=== PATIENT | male | born 1975 | race Caucasian/White ===

== ENCOUNTER 2021-11-29 13:43 | Outpatient (CLI) | payer BC, SELFPAY ==
--- NOTE | 2021-11-29 14:02 | XR_ITS ---
WS: [id number] Chest 2 views, 11/29/2021 Clinical Data: dyspnea Comparison: None. Findings: No nodules, masses or effusions are seen. The heart is enlarged. The pulmonary vascularity is not increased. No pneumonia or pneumothorax is seen. XR/XR chest 2V* [id number] Impression: Cardiomegaly.
== END 2021-11-29 13:44 | disposition home or self-care (01) ==
LOC: RAD 13:47
PROVIDERS: PCP Clinical Nurse Specialist Adult Health; Visit Provider Clinical Nurse Specialist Adult Health
DX: R06.00 Dyspnea, unspecified (principal); I51.7 Cardiomegaly
CPT/HCPCS: 71046

== ENCOUNTER → 2021-12-12 09:29 | Outpatient (BNVA) | payer BC, SELFPAY | PROVIDERS: PCP Clinical Nurse Specialist Adult Health; Visit Provider Clinical Nurse Specialist Adult Health | DX: E78.5 Hyperlipidemia, unspecified (principal); I10 Essential (primary) hypertension | CPT/HCPCS: 80053 ==

== ENCOUNTER 2022-02-26 14:40 | Outpatient (CLI) | payer BC, MEDICAID, SELFPAY ==
--- NOTE | 2022-02-26 15:15 | USCV_ITS ---
Blake Judd Age: 46 Gender: M : 1975 Exam Date: 02/26/2022 15:28 Ordering Phys: Matt Cosby DO Technologist: Exam Location: [facility] [place] Indication: sob BP: 148 / 84 HR: 100 Rhythm: Sinus Technical Quality: Adequate MEASUREMENTS (Male / Female) Normal Values 2D ECHO LV Diastolic Diameter PLAX 6.6 cm 4.2 - 5.9 / 3.9 - 5.3 cm LV Systolic Diameter PLAX 3.3 cm IVS Diastolic Thickness 1.1 cm 0.6 - 1.0 / 0.6 - 0.9 cm IVS Systolic Thickness 1.1 cm LVPW Diastolic Thickness 0.8 cm 0.6 - 1.0 / 0.6 - 0.9 cm LVPW Systolic Thickness 4.6 cm LVOT Diameter 2.4 cm LV Ejection Fraction 2D Teich 62.3 % LV Ejection Fraction MOD 2C 58.9 % LV Ejection Fraction 2C AL 58.4 % LA Diameter 4.7 cm Aorta at Sinotubular Diameter 2.7 cm M-MODE Aortic Annulus Diameter 3.1 cm LA Ao Ratio MM 1.5 MV E Point Septal Separation 1.6 cm DOPPLER AV Peak Velocity 172.0 cm/s LVOT Peak Velocity 96.0 cm/s AV Area Cont Eq vti 2.2 cm squared AV Area Cont Eq pk 2.4 cm squared MV Area PHT 5.0 cm squared Mitral E to A Ratio 2.6 MV E' Velocity 68.2 cm/s Mitral E to MV E' Ratio 12.9 Mitral E to LV E' Lateral Ratio 9.0 Mitral E to LV E' Septal Ratio 23.6 TR Peak Velocity 388.0 cm/s TR Peak Gradient 60.2 mmHg TV Peak E Velocity 88.0 cm/s Right Atrial Pressure 3.0 mmHg Pulmonary Artery Systolic Pressu 63.2 mmHg PV Peak Velocity 99.0 cm/s FINDINGS Left Ventricle Normal left ventricular size, systolic function and wall thickness, with no regional wall motion abnormalities. Normal left ventricular wall thickness. Grade III/IV diastolic dysfunction (restrictive filling pattern), severely elevated filling pressures. Right Ventricle The right ventricle is normal in size and function. Right Atrium The right atrium is normal in size. Left Atrium Moderately increased left atrial size. Mitral Valve Structurally normal mitral valve without significant stenosis or prolapse. Mild-moderate mitral valve regurgitation. Aortic Valve Structurally normal aortic valve without significant sclerosis or stenosis. There is no aortic regurgitation. Tricuspid Valve Structurally normal tricuspid valve without significant stenosis. Mild tricuspid valve regurgitation. Moderate to severe pulmonary hypertension, PASP 63 mm Hg. Pulmonic Valve Structurally normal pulmonic valve without significant stenosis. There is no pulmonic regurgitation. Pericardium Normal pericardium without effusion. Aorta Normal ascending aorta dimension. IVC The inferior vena cava appears normal. CONCLUSIONS [unable to view video images, interpretation based on still Normal left ventricular size, systolic function and wall thickness, with no regional wall motion abnormalities. Normal left ventricular wall thickness. Grade III/IV diastolic dysfunction (restrictive filling pattern), severely elevated filling pressures. Moderately increased left atrial size. Structurally normal mitral valve without significant stenosis or prolapse. Mild-moderate mitral valve regurgitation. Structurally normal tricuspid valve without significant stenosis. Mild tricuspid valve regurgitation. Moderate to severe pulmonary hypertension, PASP 63 mm Hg. Jamie Anderson MD (Electronically Signed) Final Date: 27 February 2022 17:52 S
== END 2022-02-26 14:41 | disposition home or self-care (01) ==
LOC: RAD 14:44
PROVIDERS: PCP Clinical Nurse Specialist Adult Health; Visit Provider Family Medicine
DX: R06.00 Dyspnea, unspecified (principal); R60.9 Edema, unspecified; I08.1 Rheumatic disorders of both mitral and tricuspid valves; I27.20 Pulmonary hypertension, unspecified
CPT/HCPCS: 93306

== ENCOUNTER 2022-03-13 12:00 | Outpatient (CLI) | payer BC, MEDICAID, SELFPAY | END 2022-03-13 12:01 | disposition home or self-care (01) | LOC: SLEEP 03-14 09:11 | PROVIDERS: PCP Clinical Nurse Specialist Adult Health; Visit Provider Family Medicine | DX: G47.33 Obstructive sleep apnea (adult) (pediatric) (principal) | CPT/HCPCS: G0399 ==

== ENCOUNTER → 2022-03-26 07:48 | Outpatient (BNVA) | payer BC, MEDICAID, SELFPAY | PROVIDERS: PCP Clinical Nurse Specialist Adult Health; Visit Provider Clinical Nurse Specialist Adult Health | DX: I51.7 Cardiomegaly (principal); R06.00 Dyspnea, unspecified; R60.9 Edema, unspecified; E11.9 Type 2 diabetes mellitus without complications; E78.5 Hyperlipidemia, unspecified | CPT/HCPCS: 80053; 83036; 83880 ==

== ENCOUNTER → 2022-05-28 08:46 | Outpatient (BNVA) | payer BC, MEDICAID, SELFPAY | PROVIDERS: PCP Clinical Nurse Specialist Adult Health; Visit Provider Clinical Nurse Specialist Adult Health | DX: E11.9 Type 2 diabetes mellitus without complications (principal) | CPT/HCPCS: 80053; 80061; 83036; 83721; 85025 ==

== ENCOUNTER → 2022-07-24 15:58 | Outpatient (BNVA) | payer BC, MEDICAID, SELFPAY | PROVIDERS: PCP Clinical Nurse Specialist Adult Health; Visit Provider Internal Medicine Cardiovascular Disease | DX: I48.91 Unspecified atrial fibrillation (principal); R06.02 Shortness of breath; Z79.01 Long term (current) use of anticoagulants; N18.9 Chronic kidney disease, unspecified | CPT/HCPCS: 36415; 80048; 83880; 84443; 85025; 85610 ==